=== PATIENT | male | born 1955 | race Caucasian/White ===

== ENCOUNTER 2019-02-10 12:18 | Observation (INO) ==
--- NOTE | 2019-02-10 12:44 | ANES ---
Anesthesia Pre Procedure Eval Vitals/Labs: Last Vital Signs Temp 37.0 C 02/10/19 12:41 Pulse 89 02/10/19 12:41 Resp 16 02/10/19 12:41 BP 130/82 02/10/19 12:41 Pulse Ox 95 02/10/19 12:41 HOME MEDICATIONS Amitriptyline HCl 100 mg PO HS 07/28/14 [Last Taken Unknown] Amlodipine Besylate 10 mg PO DAILY 07/28/14 [Last Taken Unknown] B-12 1,000 mg PO DAILY 07/28/14 [Last Taken Unknown] Benazepril HCl 40 mg PO DAILY 07/28/14 [Last Taken Unknown] Citalopram HBr 20 mg PO DAILY 07/28/14 [Last Taken Unknown] Fenofibrate 145 mg PO DAILY 07/28/14 [Last Taken Unknown] Fish Oil 500 mg PO DAILY 07/28/14 [Last Taken Unknown] Hydrocodon-Acetaminoph 7.5-325 mg PO TID 07/28/14 [Last Taken 07/28/14] Iron 65 mg PO DAILY 07/28/14 [Last Taken Unknown] Lyrica 200 mg PO BID 07/28/14 [Last Taken Unknown] Metformin HCl 500 mg PO BID 07/28/14 [Last Taken Unknown] Naproxen [Naprosyn] 375 mg PO BID #60 tablet 07/28/14 [Last Taken Unknown] Onglyza 5 mg PO QAM 07/28/14 [Last Taken Unknown] Stool Softener 100 mg PO PRN 07/28/14 [Last Taken Unknown] Methylprednisolone [Medrol Dosepak] 4 mg PO QID #21 tab 01/26/16 [Last Taken Unknown] Allergies/Adverse Reactions: Allergies Allergy/AdvReac Type Severity Reaction Status Date / Time No Known Allergies Allergy Verified 01/25/16 23:33 - Planned Procedure Planned Procedure: TRUS BX PROSTATE Medication List Reviewed:: Yes Allergies Verified: Yes - Family Anesthesia History Family History:: no untoward family reactions to anesthesia, no familial bleeding tendencies, no family history of clotting disorders, no family history of premature - Airway/Neck/Teeth Within Normal Limits:: Yes Teeth Condition: intact Neck Exam: full range of motion Mallampatti Score: 2 Thyromental (T-M) distance: > 6 cm Mandibulo Hyoid distance: > 3 cm - Respiratory Respiratory Physical: lungs clear Smoking Status: Never smoker Sleep Apnea by current assessment: No Discussed Risks/Treatment of LOUISA: No - Cardiovascular Cardiac History: hypertension Tolerate Activity: Fair Heart Sounds: S1 & S2, Regular - Anesthesia Assessment and Plan ASA Class: PS, II Anesthesia Type Plan: MAC - Also takes Alprazolam
[2019-02-10] MEDS: NORMAL SALINE 1,000 ML IV PRN ×3 (12:56→20:43)
--- NOTE | 2019-02-10 13:56 | OR ---
Operative Report - Dictated Report Narrative: Procedure performed: TRUS guided prostate biopsy Anesthesia: IV/Mac Preoperative diagnosis : elevated PSA Postoperative diagnosis: Same Description of procedure: Preoperative antibiotics administered. Consent obtained. Patient positioned in the left lateral decubitus position. Probe inserted. Measurements taken. Prostate volume: 20 grams Biopsies were then obtained from either side directed laterally from the base, mid, and apical portions of the gland. Total biopsies right: 6 Total biopsies left: 6 Findings: no concerning hypo/hyperechoic areas, normal SV's Patient tolerated well. Will return to clinic in 7-10 days for counseling or 6 months for repeat PSA, depending on biopsy results. EBL: 0cc Specimen: prostate Condition: tolerated procedure Follow up: 1-2 weeks for counseling. If negative 6 months with PSA
--- NOTE | 2019-02-10 14:12 | ANES ---
Post Anesthesia Discharge - Transfer of Care Transfer of Care handoff given to nurse: Yes - Discharge to [facility] Discharge to [facility]-no complications/pt stable: Yes
--- NOTE | 2019-02-10 14:12 | ANES ---
Post Anesthesia Assessment - Vital Signs Vitals: Last Vital Signs Temp 36.8 C 02/10/19 14:00 Pulse 89 02/10/19 14:06 Resp 17 02/10/19 14:06 BP 123/86 02/10/19 14:06 Pulse Ox 97 02/10/19 14:06 Airway Patency: Normal - Mental Status Level Of Consciousness: Awake - Pain Level Pain Score: 0 - N/V Assessment Nausea/Vomiting Presence: None Dehydration:: No
[2019-02-10 15:01] LABS: Hemoglobin 12.7 gm/dL (13.5-18.0)
[2019-02-10] MEDS ORDERED: LORazepam 0.5 MG TABLET PO PRN (18:42)
[2019-02-10] MEDS ORDERED: traMADol HCL 50 MG TABLET PO PRN (18:42)
[2019-02-10] MEDS ORDERED: CYCLOBENZAPRINE HCL 10 MG TABLET PO PRN (18:42)
[2019-02-10] MEDS ORDERED: ACETAMINOPHEN 325 MG TABLET PO PRN (18:55)
--- NOTE | 2019-02-10 19:17 | HP ---
Chief Complaint - Chief Complaint Date of Service: 02/10/19 Time of Service: 19:04 Chief Complaint: I have rectal bleeding History of Present Illness: 63-year-old male with past medical history of hypertension, anemia, elevated PSA, GERD, insomnia hyperlipidemia, type 2 diabetes, was [facility] from the outpatient suite for rectal bleeding secondary to a procedure performed by his urologist this afternoon. Patient underwent a transrectal ultrasound-guided prostate biopsy but started bleeding after the procedure and is currently still bleeding. So we are admitting him for observation for rectal bleeding and monitoring of serial H&H and possibly transfusion of PRBC. Patient is Dr. Vale' patient, I have communicated with him and he presented the case to me and told me to continue monitoring the patient for bleeding and if bleeding does not stop to consult surgery for intervention. Patient's last hemoglobin was at 12.7 which was conducted at 4 PM we are awaiting another hemoglobin for reevaluation. Medical History (Updated 02/10/19 @ 19:17 by Marley Guerra MD) Anemia Anxiety Elevated prostate specific antigen (PSA) GERD (gastroesophageal reflux disease) Hyperlipidemia Hypertension Insomnia Lumbar spinal stenosis Neuropathy Obstructive sleep apnea Sciatica Type II diabetes mellitus Surgical History: Surgical History (Updated 02/10/19 @ 19:17 by Marley Guerra MD) History of arthroscopic knee surgery right et left History of back surgery 2009 History of bilateral carpal tunnel release History of repair of rotator cuff left Hx of prostate biopsy Family History: Family History (Last Reviewed 02/10/19 @ 16:37 by Dahiana Marino RN) Mother Type II diabetes mellitus Hypertension Brother Type II diabetes mellitus Hypertension Social History: Patient Lives/Resources Home Utilized Preferred Language Czech Do you have any jainism or No cultural preference? Smoking Status Never smoker Have you smoked in the past 12 No months Do you dip or chew tobacco No No Social History Section defined Peds Patient Hx - Developmental: No Pertinent Hx Peds Patient Hx - Medical: No Pertinent Hx Peds Patient Hx - Cardiac/Respiratory: No Pertinent Hx Peds Patient Hx - Surgical: No Surgical History Patient History - Cancer: No Hx of Cancer Review Of Systems (GEN) - Review of Systems Generalized/Overall Review: Present: No Symptoms Reported EENTM: Present: No Symptoms Reported Respiratory: Present: No Symptoms Reported Cardiac: Present: No Symptoms Reported Abdominal: Present: Bright blood from rectum Genitourinary: Present: No Symptoms Reported Musculoskeletal: Present: No Symptoms Reported Neurological: Present: No Symptoms Reported Skin: Present: No Symptoms Reported Endocrine: Present: Increased Hunger Immunizations: IMMUNIZATION HX History of Influenza Vaccine Yes Allergies/Adverse Reactions: Allergies Allergy/AdvReac Type Severity Reaction Status Date / Time No Known Allergies Allergy Verified 01/25/16 23:33 Home Medications: HOME MEDICATIONS Aspirin [Aspirin EC] 81 mg PO DAILY 02/10/19 [Last Taken Unknown] Atorvastatin Calcium 80 mg PO DAILY 02/10/19 [Last Taken Unknown] Benazepril HCl 40 mg PO DAILY 02/10/19 [Last Taken Unknown] Cyanocobalamin (Vitamin B-12) [B-12] 1,000 mcg PO DAILY 02/10/19 [Last Taken Unknown] Cyclobenzaprine HCl 10 mg PO Q8H PRN 02/10/19 [Last Taken Unknown] Ferrous Sulfate 650 mg PO DAILY 02/10/19 [Last Taken Unknown] Gabapentin 1,200 mg PO HS 02/10/19 [Last Taken Unknown] Gabapentin 900 mg PO BID 02/10/19 [Last Taken Unknown] LORazepam [Ativan] 0.5 mg PO HS PRN 02/10/19 [Last Taken Unknown] Meloxicam [Mobic] 15 mg PO DAILY 02/10/19 [Last Taken Unknown] Multivitamins [Multivitamin Nuvia] 1 cap PO DAILY 02/10/19 [Last Taken Unknown] Omeprazole 20 mg PO DAILY 02/10/19 [Last Taken Unknown] Ropinirole HCl [Requip Xl] 2 mg PO HS 02/10/19 [Last Taken Unknown] Tamsulosin HCl 0.4 mg PO DAILY 02/10/19 [Last Taken Unknown] amLODIPine BESYLATE [Norvasc] 5 mg PO DAILY 02/10/19 [Last Taken 02/10/19 10:30] metFORMIN HCL [Glucophage] 1,000 mg PO BIDWM 02/10/19 [Last Taken Unknown] traMADol HCL [Tramadol HCl] 50 mg PO Q4H PRN 02/10/19 [Last Taken Unknown] Exam - Exam Vital Signs: Vital Signs - Last Taken Temp 36.6 C 02/10/19 16:23 Pulse 90 02/10/19 16:23 Resp 18 02/10/19 16:23 BP 146/86 02/10/19 16:23 Pulse Ox 98 02/10/19 16:23 Constitutional: Present: Alert, Oriented x3, Cooperative, Well developed, Well nourished, No distress ENT Exam: Present: normal ENT inspection, hearing grossly normal, pharynx normal, TMs normal Eye Exam: bilateral eye: normal inspection, PERRL, EOMI Neck: Present: non-tender, full range of motion, supple, normal inspection, trachea midline Back Exam: Present: normal inspection, no CVA tenderness, no vertebral tenderness Breasts: Present: Exam deferred Respiratory: Present: chest non-tender, lungs clear, normal breath sounds, no respiratory distress, no accessory muscle use Cardiovascular/Chest: Present: normal peripheral pulses, regular rate, rhythm, no chest tenderness, no edema, no gallop, no JVD, no murmur, no rub Peripheral Pulses: carotid (R): 4+, carotid (L): 4+, femoral (R): 4+, femoral (L): 4+, dorsalis-pedis (R): 4+, dorsalis-pedis (L): 4+ Abdomen: Present: Normal bowel sounds, soft, nontender, nondistended, no rebound tenderness, no hepatospenomegaly, no masses, obese /Rectal: Present: Other - Rectal bleeding with significant blood clots Extremity: Present: normal range of motion, non-tender, normal inspection, no pedal edema, no calf tenderness, normal capillary refill Skin Exam: Present: normal color, warm/dry, no cyanosis Lymphatic: Present: no adenopathy Neurologic: Present: community director II-XII nml as tested, normal cerebellar test, no motor/sensory deficits, alert, normal mood/affect, oriented x 3 Appearance: Present: appropriate appearance, appropriate insight, neat, no memory impairment Eye contact: Present: cooperative, good eye contact Thoughts: Present: normal thought pattern Diagnostic Studies: Abnormal Lab Results 02/10/19 Range/Units 15:00 Hgb 12.7 L (13.5-18.0) gm/dL Hct 36.0 L (42.0-52.0) % Laboratory Results Hgb 12.7 gm/dL (13.5-18.0) L 02/10/19 15:00 Hct 36.0 % (42.0-52.0) L 02/10/19 15:00 Blood Type O Positive 02/10/19 14:50 Antibody Screen Negative 02/10/19 14:50 Assessment/Plan - Narrative Narrative: Patient was evaluated and medical chart was reviewed and decision to admit for acute rectal bleeding status post transrectal ultrasound-guided prostate biopsy and anemia was made. Serial H&H have been ordered to monitor hemoglobin, type and screen for 3 units of blood have been ordered in case transfusion is needed. Patient continues to bleed with significant blood clots, H&H stat has been ordered to evaluate hemoglobin levels. We will follow-up with results and treat anemia accordingly. On-call general surgery will be consulted if necessary for scope or surgical intervention to stop bleeding. - Assessment/Plan (1) Postoperative anemia Problem: Acute (2) Postoperative anemia due to acute blood loss Problem: Acute (3) History of prostate biopsy Problem: Acute (4) Rectal bleeding Problem: Acute
[2019-02-10 19:19] LABS: Hematocrit 29.5 % (42.0-52.0); Hemoglobin 10.5 gm/dL (13.5-18.0)
[2019-02-10] MEDS ORDERED: FUROSEMIDE 10 MG/ML VIAL IV ONE (19:34)
[2019-02-10] MEDS ORDERED: diphenhydrAMINE HCL 50 MG/ML VIAL IV ONE (19:34)
[2019-02-10] MEDS ORDERED: rOPINIRole HCL 1 MG TABLET PO SCH (21:00)
[2019-02-10] MEDS ORDERED: CIPROFLOXACIN HCL 500 MG TABLET PO SCH (21:00)
[2019-02-10] MEDS ORDERED: GABAPENTIN 600 MG TABLET PO SCH (21:00)
--- NOTE | 2019-02-10 21:17 | DS ---
Transfer Discharge Summary - Diagnosis(s)/Problems (1) Postoperative anemia Narrative: 63-year-old male admitted for postprocedural hemorrhagic anemia after undergoing a transrectal prostate biopsy by his urologist here at [facility], was evaluated at bedside and was found to have persistent rectal bleeding. General surgery was consulted and patient was evaluated by Dr. Noe which is the physician educational technician this evening, her recommendation was to transfer the patient for possible angio at [facility] because she would be unable to stop the bleeding with a scope. Therefore [facility] was contacted and accepted the case. While transfer process is initiated we will transfuse the patient 1 unit of blood for ongoing bleeding. Patient will be transported in an ambulance. At the moment he maintains stable vitals and denies any pain but appears concerned about his condition. Problem: Acute (2) Postoperative anemia due to acute blood loss Problem: Acute (3) History of prostate biopsy Problem: Acute (4) Rectal bleeding Problem: Acute - Course Description of Stay: 63-year-old male admitted for ongoing rectal bleeding after undergoing a transrectal ultrasound-guided prostate biopsy by Dr. Arreola this afternoon at our institution continues to present rectal bleeding and post hemorrhagic anemia. Patient was evaluated by the general surgeon on-call Dr. Saenz who recommended transferring the patient to [facility] for a angiogram with with cauterization. At the moment patient presents stable vitals and denies pain. He was informed in his condition and agreed to be transferred after talking to his urologist on the phone. Transfer process was initiated, in the meantime we will transfuse patient with 1 unit of PRBCs. Patient was accepted by Dr. Bruno and Dr. Pandya which is a general surgeon at [facility] also accepted the case. Procedures Performed: see notes below Procedures: Transfusion of 1 unit of PRBC. - Results and Findings Results and Findings: Laboratory Results - last 24 hr 02/10/19 02/10/19 02/10/19 14:50 15:00 19:14 Hgb 12.7 L 10.5 L Hct 36.0 L 29.5 L Blood Type O Positive Antibody Screen Negative Crossmatch See Detail - Medications Medications: Active Medications Ceftriaxone Sodium 2,000 mg/ (Dextrose/Water) 100 mls @ 200 mls/hr IV PRN PRN; Protocol PRN Reason: urology surgery Stop: 02/10/19 23:00 Last Infusion: 02/10/19 13:50 Dose: Infused Documented by: Sodium Chloride (Sodium Chloride 0.9%) 1,000 mls @ 75 mls/hr IV .[id number] PRN PRN Reason: HYDRATION Stop: 02/10/19 23:00 Last Admin: 02/10/19 20:43 Dose: 75 mls/hr Documented by: - Disposition Disposition: Short Term Hospital Inpatient Condition: Fair Discharge Date: 02/10/19 Discharge Time: 21:15
--- NOTE | 2019-02-10 21:31 | DS ---
(1) Postoperative anemia Problem: Acute (2) Postoperative anemia due to acute blood loss Problem: Acute (3) History of prostate biopsy Problem: Acute (4) Rectal bleeding Problem: Acute (5) Transfusion of blood during current hospitalisation Problem: Acute Description of Stay: 63-year-old male admitted for rectal bleeding and post hemorrhage anemia after undergoing a transrectal ultrasound-guided prostate biopsy by his urologist continues with persistent rectal bleeding. General surgery was consulted and after evaluation of the patient she recommended that the patient be transferred to [facility] for an angiogram with cauterization because she would be unable to stop the bleeding with a regular scope. Patient was informed of his condition and spoke to his urologist on the phone and was in total agreement of being transferred. During the transfer process patient will be transfused 1 unit of PRBCs for his anemia. At the moment he presents stable vitals and denies any pain or any other symptoms. Patient is urinating without any problems. The case was presented to Dr. Bruno who is an insecticide expert emissions inspector at [place] and he agreed to accept the patient with the support of Dr. Pandya the general surgeon. We will transfer the patient in ambulance for a higher level of care. Procedures Performed: see notes below List Procedures: Transrectal ultrasound-guided prostate biopsy Results and Findings: Lab Pending Results 02/10/19 14:50: Blood Type O Positive, Antibody Screen Negative, Crossmatch See Detail 02/10/19 15:00: Hgb 12.7 L, Hct 36.0 L 02/10/19 19:14: Hgb 10.5 L, Hct 29.5 L Discharge Location: [facility] Disposition: Short Term Hospital Inpatient Condition: Stable Face to Face Encounter completed per CMS Guidelines: No Discharge Activity: Activity as tolerated Discharge Diet: Consistent carbs Referrals: Charlene Torres ARNP [Primary Care Provider] - Problem Oriented Discharge Instructions to Patient/Family: Transrectal Ultrasound, Transrectal Ultrasound-Guided Biopsy Complete Home Medications List: Complete Home Medication List: Aspirin [Aspirin EC] 81 mg PO DAILY 02/10/19 Atorvastatin Calcium 80 mg PO DAILY 02/10/19 Benazepril HCl 40 mg PO DAILY 02/10/19 Cyanocobalamin (Vitamin B-12) [B-12] 1,000 mcg PO DAILY 02/10/19 Cyclobenzaprine HCl 10 mg PO Q8H PRN 02/10/19 Ferrous Sulfate 650 mg PO DAILY 02/10/19 Gabapentin 1,200 mg PO HS 02/10/19 Gabapentin 900 mg PO BID 02/10/19 LORazepam [Ativan] 0.5 mg PO HS PRN 02/10/19 Meloxicam [Mobic] 15 mg PO DAILY 02/10/19 Multivitamins [Multivitamin Nuvia] 1 cap PO DAILY 02/10/19 Omeprazole 20 mg PO DAILY 02/10/19 Ropinirole HCl [Requip Xl] 2 mg PO HS 02/10/19 Tamsulosin HCl 0.4 mg PO DAILY 02/10/19 amLODIPine BESYLATE [Norvasc] 5 mg PO DAILY 02/10/19 metFORMIN HCL [Glucophage] 1,000 mg PO BIDWM 02/10/19 traMADol HCL [Tramadol HCl] 50 mg PO Q4H PRN 02/10/19
[2019-02-10 23:27] VITALS: BP 143/93
[2019-02-11] MEDS ORDERED: PANTOPRAZOLE SODIUM 20 MG TABLET.DR PO SCH (07:00)
[2019-02-11] MEDS ORDERED: MULTIVITAMINS 1 CAP CAPSULE PO SCH (09:00)
[2019-02-11] MEDS ORDERED: ENALAPRIL MALEATE 20 MG TABLET PO SCH (09:00)
[2019-02-11] MEDS ORDERED: TAMSULOSIN HCL 0.4 MG CAP.SR.24H PO SCH (09:00)
[2019-02-11] MEDS ORDERED: amLODIPine BESYLATE 5 MG TABLET PO SCH (09:00)
[2019-02-11] MEDS ORDERED: ROSUVASTATIN CALCIUM 20 MG TABLET PO SCH (09:00)
[2019-02-11] MEDS ORDERED: GABAPENTIN 300 MG CAPSULE PO SCH (09:00)
[2019-02-11] MEDS ORDERED: FERROUS SULFATE 325 MG TABLET PO SCH (09:00)
[2019-02-11] MEDS ORDERED: CYANOCOBALAMIN 1,000 MCG TABLET PO SCH (09:00)
[2019-02-11] MEDS ORDERED: metFORMIN HCL 500 MG TABLET PO SCH (09:00)
--- NOTE | 2019-02-11 10:25 | CONS ---
HPI - History of Present Illness Initial Comments: Deyvi is a pleasant 61-year-old male who underwent a urological procedure. I am called by the family practice physician for significant bleeding. She has spoken with the urologist who did the procedure and he asked to call the surgeon for a possible colonoscopy. The patient feels like his abdomen is tight, and has moderate abdominal discomfort. His vital signs are stable. He is still having significant bleeding according to nursing. The bleeding is from the rectum. Allergies/Adverse Reactions: Allergies No Known Allergies Allergy (Verified 01/25/16 23:33) Home Medications: Home Medications Medication Instructions Recorded Last Taken Aspirin [Aspirin EC] 81 mg PO DAILY 02/10/19 Unknown Atorvastatin Calcium 80 mg PO DAILY 02/10/19 Unknown Benazepril HCl 40 mg PO DAILY 02/10/19 Unknown Cyanocobalamin (Vitamin B-12) 1,000 mcg PO DAILY 02/10/19 Unknown [B-12] Cyclobenzaprine HCl 10 mg PO Q8H PRN 02/10/19 Unknown Ferrous Sulfate 650 mg PO DAILY 02/10/19 Unknown Gabapentin 1,200 mg PO HS 02/10/19 Unknown Gabapentin 900 mg PO BID 02/10/19 Unknown LORazepam [Ativan] 0.5 mg PO HS PRN 02/10/19 Unknown Meloxicam [Mobic] 15 mg PO DAILY 02/10/19 Unknown Multivitamins [Multivitamin Nuvia] 1 cap PO DAILY 02/10/19 Unknown Omeprazole 20 mg PO DAILY 02/10/19 Unknown Ropinirole HCl [Requip Xl] 2 mg PO HS 02/10/19 Unknown Tamsulosin HCl 0.4 mg PO DAILY 02/10/19 Unknown amLODIPine BESYLATE [Norvasc] 5 mg PO DAILY 02/10/19 02/10/19 10:30 metFORMIN HCL [Glucophage] 1,000 mg PO BIDWM 02/10/19 Unknown traMADol HCL [Tramadol HCl] 50 mg PO Q4H PRN 02/10/19 Unknown Procedures Injection of anesthetic into spinal canal for analgesia (02/21/11) Injection of other agent into spinal canal (02/21/11) Injection of steroid (02/21/11) Physical Examination - Exam Narrative: Anoscopic exam was completed. There is red blood present in the rectum. There is no sign of active bleeding. I see a small punctate hole on examination in the left lateral position. While the patient is in the left lateral position. There is no blood from this area. There is ecchymosis and swelling present of the rectal wall. Vital Signs: Vital Signs - Last Taken Temp 37.2 C 02/10/19 21:30 Pulse 117 H 02/10/19 21:30 Resp 18 02/10/19 21:30 BP 143/93 H 02/10/19 21:30 Pulse Ox 100 02/10/19 21:30 O2 Oxygen Delivery Method Room Air - Results and Findings: Lab/Microbiology results last 24 hrs: Abnormal/Pending Laboratory Last 24 HRS 02/10/19 02/10/19 02/10/19 19:14 15:00 14:50 Hgb 10.5 L 12.7 L Hct 29.5 L 36.0 L Crossmatch See Detail - Assessments/Findings (1) History of prostate biopsy Problem: Acute (2) Postoperative anemia Problem: Acute (3) Postoperative anemia due to acute blood loss Problem: Acute (4) Rectal bleeding Problem: Acute (5) Transfusion of blood during current hospitalisation Problem: Acute Plan - Plan Plan: His coags are normal. Vital signs are normal. I think that the patient may need an angiogram as on the anoscopic exam there was ecchymoses pushing against the rectal wall. I am concerned that the bleeding could be internal. I do not think that doing a colonoscopy and placing a clip would be helpful. I could see a puncture hole in the rectum where the procedure was done. Was not active bleeding coming from this area. Even if this was clipped here he continued to bleed internally. I think that he needs an angiogram. I discussed this with Dr Jovana Guerra and she plans to transfer to [facility].
== END 2019-02-10 21:45 | disposition short-term general hospital (02) ==
LOC: SUR 12:18 → MS 12:18 → UNDODISOB 16:25
PROVIDERS: ADMIT Family Medicine; ATTEND Urology
PROC: [UNRECOGNIZED PROCEDURE] (2019-02-10 13:40)
DX: K62.5 Hemorrhage of anus and rectum; D62 Acute posthemorrhagic anemia; Z98.890 Other specified postprocedural states
CPT/HCPCS: 36415; 76942; 85014; 85018; 86850; 88305; 88344; P9016